=== PATIENT | female | born 1970 | race Caucasian/White ===

== ENCOUNTER 2018-02-02 11:18 | Emergency (ER) | payer BC ==
[2018-02-02 11:30] VITALS: BP 132/78; PULSE 83; RESP 16; TEMP 98.5; O2SAT 99
--- NOTE | 2018-02-02 11:55 | C.PDOC ---
History Of Present Illness 47 year old female with PMHx of hypothyroidism presents to the ED c/o pain to her right hand, 3rd digit metacarpal for the past 2 days. 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 Patient denies weakness, numbness, injury, fall, trauma. Time Seen by Provider: 02/02/18 11:25 Chief Complaint (Nursing): Finger,Hand,&Wrist History Per: Patient History/Exam Limitations: no limitations Onset/Duration Of Symptoms: Days (2) Current Symptoms Are (Timing): Still Present Quality: "Pain" Recent travel outside of the [place]: No Additional History Per: Patient Past Medical History Reviewed: Historical Data, Nursing Documentation, Vital Signs Vital Signs: Last Vital Signs Temp 98.5 F 02/02/18 11:25 Pulse 83 02/02/18 11:25 Resp 16 02/02/18 11:25 BP 132/78 02/02/18 11:25 Pulse Ox 99 02/02/18 12:01 - Medical History PMH: Hyperthyroidism, Seizures Surgical History: No Surg Hx Family History: States: Unknown Family Hx - Social History Hx Alcohol Use: No Hx Substance Use: No - Immunization History Hx Tetanus Toxoid Vaccination: No Hx Influenza Vaccination: No Hx Pneumococcal Vaccination: No Review Of Systems Constitutional: Negative for: Fever, Chills Gastrointestinal: Negative for: Nausea, Vomiting Musculoskeletal: Positive for: Hand Pain Skin: Negative for: Rash Neurological: Negative for: Weakness, Numbness Physical Exam - Physical Exam Appears: Non-toxic, No Acute Distress Skin: Normal Color, Warm, Dry Head: Atraumatic, Normacephalic Eye(s): bilateral: Normal Inspection Neck: Normal ROM, Supple Extremity: Normal ROM, Tenderness (right 3rd digit), Capillary Refill (< 2 seconds), Swelling (3rd right digit), Other (small lump on lateral side of 3rd right digit) Pulses: Left Radial: Normal, Right Radial: Normal Neurological/Psych: Oriented x3, Normal Speech Gait: Steady ED Course And Treatment O2 Sat by Pulse Oximetry: 99 (ON RA) Pulse Ox Interpretation: Normal Medical Decision Making Medical Decision Making: Impression: right hand pain Plan: * Right hand X-ray Disposition Counseled Patient/Family Regarding: Studies Performed, Diagnosis, Need For Followup - Disposition Referrals: [facility] [Outside] Ofe Ramos MD [Staff Provider] - Disposition Time: 12:00 Additional Instructions: Take Motrin and Tylenol for pain. Ice your finger 3 times a day. Follow up with your doctor or our clinic and the hand specialist if symptoms do not improve. Instructions: Finger Sprain (DC) Forms: [facility] (Mal[place]ian) - POA Present On Arrival: None - Clinical Impression Clinical Impression: Sprain, finger - Scribe Statement The provider has reviewed the documentation as recorded by the Scribe Massimo Wynn All medical record entries made by the Scribe were at my direction and personally dictated by me. I have reviewed the chart and agree that the record accurately reflects my personal performance of the history, physical exam, medical decision making, and the department course for this patient. I have also personally directed, reviewed, and agree with the discharge instructions and disposition.
--- NOTE | 2018-02-02 14:57 | RAD ---
PROCEDURE: Right Hand Radiographs. HISTORY: pain to hand , 3rd metacarpal COMPARISON: None. FINDINGS: BONES: Normal. No fracture. JOINTS: Normal. No osteoarthritic changes. SOFT TISSUES: Normal. OTHER FINDINGS: None. IMPRESSION: No evidence of acute fracture or dislocation.
== END 2018-02-02 12:10 | disposition home or self-care (01) ==
LOC: C.ER 11:18
DX: S63.612A Unspecified sprain of right middle finger, initial encounter (principal); X50.0XXA Overexertion from strenuous movement or load, initial encounter; Y93.F2 Activity, caregiving, lifting; Y92.89 Other specified places as the place of occurrence of the external cause